=== PATIENT | male | born 1950 ===

== ENCOUNTER 2023-01-30 00:56 | Emergency (ER) | payer MEDICARE, MEDICAID ==
--- NOTE | 2023-01-30 01:21 | NUR ---
Note abisai in ED - 01/30/23 at 0132 by GENESIS PATIENT TROPONIN DRAWN BY THIS ESTABLISHMENT GUIDE. PATIENT STATES HE FEELS FINE NOW. NO CHEST DISCOMFORT NOW. PATIENT STATES HE FEELS CALM. NO ARM DISCOMFORT. PATIENT IN WAITING ROOM. AWAITING AN ER BED.
== END 2023-01-30 03:13 | disposition left against medical advice (07) ==
LOC: ER 00:56
DX: M79.673 Pain in unspecified foot (principal); Z53.21 Procedure and treatment not carried out due to patient leaving prior to being seen by health care provider